=== PATIENT | male | born 1990 | race Native Hawaiian/Other Pacific Islander ===

== ENCOUNTER 2018-08-13 20:27 | Emergency (ER) | payer OTHER ==
[2018-08-13 20:41] VITALS: RESP 18; TEMP 98.1
[2018-08-13] MEDS ORDERED: Sodium Chloride 0.9% 1,000 ML IV STA (21:08)
[2018-08-13 21:50] LABS: VENOUS BLOOD GAS BASE EXCESS 3.6 mmol/L (0.0-2.0); VENOUS BLOOD GAS PCO2 52 mmHg (40-60); VENOUS BLOOD GAS PO2 16 mm/Hg (30-55); VENOUS BLOOD PH 7.37 (7.32-7.43)
--- NOTE | 2018-08-13 22:37 | ED PDOC ---
HPI: Abdomen Time Seen by Provider: 08/13/18 20:52 Chief Complaint (Nursing): Abdominal Pain Chief Complaint (Provider): Fever, N/V/D, epigastric pain History Per: Patient History/Exam Limitations: no limitations Onset/Duration Of Symptoms: Days Outside of [place] travel?: No Location Of Pain/Discomfort: Epigastric Quality Of Discomfort: Dull Associated Symptoms: Fever, Chills, Nausea, Vomiting, Diarrhea. denies: Loss Of Appetite, Constipation, Urinary Symptoms Exacerbating Factors: None Additional Complaint(s): 27 yo male with no medical problems presents for evaluation of fever, N/V/D x 3 days. Pt states he has been taking Motrin for the fever. Pt states it was 103 on 08/11 and 105 tympanic yesterday (08/12). Pt states he has also been having watery diarrhea and vomiting. Pt has not had influenza vaccine. Pt travels monthly to [place] for work. Past Medical History Reviewed: Historical Data, Nursing Documentation, Vital Signs Vital Signs: Last Vital Signs Temp 98.1 F 08/13/18 20:37 Pulse 66 08/13/18 20:37 Resp 18 08/13/18 20:37 BP 111/73 08/13/18 20:37 Pulse Ox 98 08/13/18 20:37 - Medical History PMH: No Chronic Diseases - Surgical History Surgical History: No Surg Hx - Family History Family History: States: No Known Family Hx - Living Arrangements Living Arrangements: With Family - Social History Current smoker - smoking cessation education provided: No - Home Medications Home Medications: Ambulatory Orders Medication Instructions Recorded Famotidine [Pepcid] 20 mg PO BID #28 tab 08/13/18 - Allergies Allergies/Adverse Reactions: Allergies Allergy/AdvReac Type Severity Reaction Status Date / Time nickel Allergy RASH Verified 08/13/18 20:37 zinc Allergy RASH Verified 08/13/18 20:37 Review of Systems ROS Statement: Except As Marked, All Systems Reviewed And Found Negative Constitutional: Positive for: Fever, Chills Cardiovascular: Negative for: Chest Pain, Palpitations Respiratory: Negative for: Cough, Shortness of Breath Gastrointestinal: Positive for: Nausea, Vomiting, Abdominal Pain, Diarrhea Physical Exam - Reviewed Nursing Documentation Reviewed: Yes Vital Signs Reviewed: Yes - Physical Exam Appears: Positive for: Well, Non-toxic, No Acute Distress Head Exam: Positive for: ATRAUMATIC, NORMAL INSPECTION, NORMOCEPHALIC Skin: Positive for: Normal Color, Warm, DRY Eye Exam: Positive for: Normal appearance ENT: Positive for: Normal ENT Inspection Neck: Positive for: Normal, Painless ROM Cardiovascular/Chest: Positive for: Regular Rate, Rhythm Respiratory: Positive for: Normal Breath Sounds. Negative for: Accessory Muscle Use, Respiratory Distress Gastrointestinal/Abdominal: Positive for: Normal Exam, Bowel Sounds, Soft. Negative for: Tenderness, Distended, Guarding, Rebound Back: Positive for: Normal Inspection Extremity: Positive for: Normal ROM Neurologic/Psych: Positive for: Alert, Oriented - Laboratory Results Result Diagrams: 08/13/18 22:25 08/13/18 22:25 - ECG O2 Sat by Pulse Oximetry: 98 Medical Decision Making Medical Decision Making: Labs normal, no elevation of WBC. Pt afebrile in ER. Abdominal non-tender. Disposition - Clinical Impression Clinical Impression: Gastroenteritis - Patient ED Disposition Is Patient to be Admitted: No Counseled Patient/Family Regarding: Diagnosis, Need For Followup, Rx Given - Disposition Referrals: Kwabena Brady MD [Staff Provider] - Disposition: Routine/Home Disposition Time: 23:55 Condition: GOOD Prescriptions: Famotidine [Pepcid] 20 mg PO BID #28 tab Instructions: Gastroenteritis (ED) Forms: [facility] (Mexican)
[2018-08-13 22:40] LABS: BASO % 0.6 % (0.0-2.0); EOS % 0.7 % (0.0-4.0); HEMOGLOBIN 14.9 g/dL (12.0-18.0); LYMPH # 1.2 K/uL (1.0-4.3); LYMPH % 31.7 % (20.0-40.0); MEAN CELL VOLUME 94.2 fl (80.0-94.0); MEAN CORPUSCULAR HEMOGLOBIN 31.3 pg (27.0-31.0); MEAN CORPUSCULAR HGB CONC 33.3 g/dL (33.0-37.0); MONO # 0.5 K/uL (0.0-0.8); MONO % 12.3 % (0.0-10.0); NEUT % 54.7 % (50.0-75.0); RBC 4.76 Mil/uL (4.40-5.90); RED CELL DISTRIBUTION WIDTH 13.6 % (11.5-14.5); WHITE BLOOD COUNT 3.7 K/uL (4.8-10.8)
[2018-08-13 22:48] LABS: ALB/GLOB RATIO 1.2 (1.0-2.1); ALBUMIN 3.4 g/dL (3.5-5.0); ALT/SGPT 36 U/L (21-72); AST/SGOT 31 U/L (17-59); BLOOD UREA NITROGEN 12 mg/dl (9-20); CALCIUM 8.7 mg/dL (8.4-10.2); GFR NON-AFRICAN AMERICAN > 60; LIPASE 131 U/L (23-300)
[2018-08-14 00:34] VITALS: BP 114/79; PULSE 62; O2SAT 100
== END 2018-08-14 00:35 | disposition home or self-care (01) ==
LOC: H.ER 20:27
DX: K52.9 Noninfective gastroenteritis and colitis, unspecified (principal)
CPT/HCPCS: 80053; 82803; 83690; 85025; 87804; 96360; 99283; J7030

== ENCOUNTER 2019-01-01 06:23 | Emergency (ER) | payer OTHER ==
--- NOTE | 2019-01-01 07:15 | ED PDOC ---
HPI: CCC, URI, Sore Throat Time Seen by Provider: 01/01/19 07:03 Chief Complaint (Nursing): Flu-like Symptoms Chief Complaint (Provider): Feve, cough and congestion History Per: Patient History/Exam Limitations: no limitations Onset/Duration Of Symptoms: Days (x2 weeks) Current Symptoms Are (Timing): Still Present Associated Symptoms: Fever, Cough, Nasal Congestion Additional Complaint(s): Sarai Waters is a 28 year old male, with no significant past medical history, who presents to the emergency department complaining of fever, cough and congestion ongoing for x2 weeks. Patient states he was initially treated by PMD with antibiotics. Patient reports improvement of symptoms but he developed a fever and cough last night. He denies any shortness of breath, chest pain or other medical complaints. PMD: Dr. Messi Arizmendi Past Medical History Reviewed: Historical Data, Nursing Documentation, Vital Signs Vital Signs: Last Vital Signs Temp 99.4 F 01/01/19 06:40 Pulse 86 01/01/19 06:40 Resp 19 01/01/19 06:40 BP 130/80 01/01/19 06:40 Pulse Ox 96 01/01/19 06:40 - Medical History PMH: No Chronic Diseases - Surgical History Surgical History: No Surg Hx - Family History Family History: States: Unknown Family Hx - Social History Current smoker - smoking cessation education provided: No Alcohol: None Drugs: Denies - Home Medications Home Medications: Ambulatory Orders Medication Instructions Recorded Famotidine [Pepcid] 20 mg PO BID #28 tab 08/13/18 Oseltamivir Cap [Tamiflu] 75 mg PO BID #10 cap 01/01/19 - Allergies Allergies/Adverse Reactions: Allergies Allergy/AdvReac Type Severity Reaction Status Date / Time nickel Allergy RASH Verified 01/01/19 06:40 zinc Allergy RASH Verified 01/01/19 06:40 Review of Systems ROS Statement: Except As Marked, All Systems Reviewed And Found Negative Constitutional: Positive for: Fever ENT: Positive for: Nose Congestion Cardiovascular: Negative for: Chest Pain Respiratory: Positive for: Cough. Negative for: Shortness of Breath Physical Exam - Reviewed Nursing Documentation Reviewed: Yes Vital Signs Reviewed: Yes - Physical Exam Appears: Positive for: No Acute Distress Head Exam: Positive for: ATRAUMATIC, NORMAL INSPECTION, NORMOCEPHALIC Skin: Positive for: Normal Color, Warm, Dry Eye Exam: Positive for: Normal appearance, EOMI, PERRL ENT: Positive for: Normal ENT Inspection. Negative for: Pharyngeal Erythema, Tonsillar Exudate, Tonsillar Swelling Neck: Positive for: Normal, Painless ROM, Supple Cardiovascular/Chest: Positive for: Regular Rate, Rhythm. Negative for: Murmur Respiratory: Positive for: Normal Breath Sounds. Negative for: Respiratory Distress Gastrointestinal/Abdominal: Positive for: Normal Exam, Soft. Negative for: Tenderness, Guarding, Rebound Back: Positive for: Normal Inspection Extremity: Positive for: Normal ROM (upper and lower extremities). Negative for: Deformity, Swelling Neurologic/Psych: Positive for: Alert, Oriented. Negative for: Motor/Sensory Deficits - ECG O2 Sat by Pulse Oximetry: 96 (RA) Pulse Ox Interpretation: Normal Medical Decision Making Medical Decision Making: Time: 07:03 Initial Impression: Will do chest x-ray and flu swab as patient plans on flying later today and will want to eliminate flu as a possibility although based on clinical presentation it is unlikely Initial Plan: --Chest two views (PA/LAT) [RAD] --Influenza A B --Reevaluation Scribe Attestation: Documented by Kali Hicks, acting as a scribe for Amrik Avila MD Provider Scribe Attestation: All medical record entries made by the Scribe were at my direction and personally dictated by me. I have reviewed the chart and agree that the record accurately reflects my personal performance of the history, physical exam, medical decision making, and the department course for this patient. I have also personally directed, reviewed, and agree with the discharge instructions and disposition. Disposition - Clinical Impression Clinical Impression: Influenza - Patient ED Disposition Is Patient to be Admitted: No Counseled Patient/Family Regarding: Studies Performed, Diagnosis, Need For Followup, Rx Given - Disposition Referrals: [facility] [Outside] Disposition: Routine/Home Disposition Time: 08:03 Condition: FAIR Prescriptions: Oseltamivir Cap [Tamiflu] 75 mg PO BID #10 cap Instructions: Flu Forms: [facility] ([place])
[2019-01-01 08:21] VITALS: BP 122/78; PULSE 79; RESP 18; TEMP 98.3; O2SAT 97
--- NOTE | 2019-01-01 09:55 | RAD ---
Date of service: 01/01/2019 HISTORY: cough COMPARISON: No prior. TECHNIQUE: Chest PA and lateral FINDINGS: LUNGS: No active pulmonary disease. PLEURA: No significant pleural effusion identified. No pneumothorax apparent. CARDIOVASCULAR: No aortic atherosclerotic calcification present. Normal cardiac size. No pulmonary vascular congestion. OSSEOUS STRUCTURES: No significant abnormalities. VISUALIZED UPPER ABDOMEN: Normal. OTHER FINDINGS: None. IMPRESSION: No acute cardiopulmonary disease appreciated.
== END 2019-01-01 08:24 | disposition home or self-care (01) ==
LOC: H.ER 06:23
DX: J11.1 Influenza due to unidentified influenza virus with other respiratory manifestations (principal)